=== PATIENT | female | born 1990 | race Caucasian/White ===

== ENCOUNTER → 2019-04-27 09:33 | Outpatient (BNVA) | payer OTHER, SELFPAY | PROVIDERS: Family Provider Nurse Practitioner Family; PCP Nurse Practitioner Family; Visit Provider Nurse Practitioner Family | DX: Z01.419 Encounter for gynecological examination (general) (routine) without abnormal findings (principal); Z68.28 Body mass index [BMI] 28.0-28.9, adult; Z71.3 Dietary counseling and surveillance; Z71.82 Exercise counseling; R51 Headache; R10.9 Unspecified abdominal pain | CPT/HCPCS: 81003 ==

== ENCOUNTER → 2019-05-27 09:26 | Outpatient (BNVA) | payer OTHER, SELFPAY | PROVIDERS: Family Provider Nurse Practitioner Family; PCP Nurse Practitioner Family; Visit Provider Nurse Practitioner Family | DX: R51 Headache (principal) | CPT/HCPCS: 80053; 84443; 85025 ==

== ENCOUNTER 2019-08-30 12:53 | Outpatient (CLI) | payer OTHER, SELFPAY ==
--- NOTE | 2019-08-30 13:00 | US_ITS ---
WS: [id number] RIGHT UPPER QUADRANT ULTRASOUND HISTORY: RUQ pain COMPARISON: None available. Liver: 14.7 cm in length. Normal size and echogenicity with no intrahepatic dilatation. No mass. Gallbladder: Normally distended gallbladder with no stones or wall thickening. CBD: 0.3 cm Pancreas: Normal size and echogenicity. Right kidney: 11.2 cm in length. Normal echogenicity with no mass or hydronephrosis. Aorta and IVC: Unremarkable. No ascites. US/US abdomen limited [id number] IMPRESSION: Normal RIGHT upper quadrant ultrasound.
== END 2019-08-30 12:54 | disposition home or self-care (01) ==
LOC: RAD 12:57
PROVIDERS: PCP Nurse Practitioner Family; Visit Provider Family Medicine
DX: R10.11 Right upper quadrant pain (principal); R10.13 Epigastric pain; Z68.28 Body mass index [BMI] 28.0-28.9, adult; Z71.89 Other specified counseling
CPT/HCPCS: 76705; 81000

== ENCOUNTER → 2019-09-21 10:12 | Outpatient (BNVA) | payer OTHER, SELFPAY | PROVIDERS: Visit Provider Nurse Practitioner Family | DX: R10.9 Unspecified abdominal pain (principal); R10.13 Epigastric pain; K21.9 Gastro-esophageal reflux disease without esophagitis; R10.813 Right lower quadrant abdominal tenderness; R10.811 Right upper quadrant abdominal tenderness; R10.84 Generalized abdominal pain | CPT/HCPCS: 80053; 81003; 81025; 85025 ==

== ENCOUNTER → 2019-09-22 09:41 | Outpatient (BNVA) | payer OTHER, SELFPAY | PROVIDERS: Visit Provider Nurse Practitioner Family | DX: K21.9 Gastro-esophageal reflux disease without esophagitis (principal); R10.9 Unspecified abdominal pain | CPT/HCPCS: 87338 ==

== ENCOUNTER 2019-09-28 08:11 | Outpatient (CLI) | payer OTHER, SELFPAY ==
[2019-09-28] MEDS: iohexol 300 mg/mL 50 mL Btl PO (09:12)
--- NOTE | 2019-09-28 09:30 | CT_ITS ---
WS: [id number] CT ABDOMEN PELVIS TECHNIQUE: Contrast-enhanced CT of the abdomen and pelvis with coronal and sagittal reformatted image s. CLINICAL INFORMATION: epigastric pain, abdominal tenderness COMPARISON: None. DLP: [address] scans at [facility] use at least one of these dose optimization techniques: automat ed exposure control; mA and/or kV adjustment per patient size (includes targeted exams where dose is matched to clinical indication); or iterative reconstruction. FINDINGS: Mild diffuse fatty infiltration of the liver. Normal portal vein and splenic vein. Normal spleen. Nor mal gastroesophageal junction. Lung bases are well aerated. Normal visualized gallbladder. Adrenal gl ands are normal. Normal renal parenchymal enhancement. No hydronephrosis. Normal caliber abdominal ao rta. Normal sigmoid colon. Colon appears decompressed. No evidence of small or large bowel obstruction. No inguinal lymphadenopathy. A few prominent lymph nodes along the mesenteric root and right lower quad rant likely reactive. Mild lumbar curve convex left. Incidental fat-containing umbilical hernia. CT/CT abdomen pelvis w con* [id number] IMPRESSION: 1. Mild diffuse fatty infiltration liver. 2. Normal caliber abdominal aorta. 3. No evidence of small or large bowel obstruction. Normal sigmoid colon. 4. A few prominent lymph nodes along the mesenteric root and right lower quadr ant likely reactive. No abdominal lymphadenopathy. 5. No hydronephrosis in either kidney. 6. Incidental fat-containing umbilical hernia.
[2019-09-28] MEDS: iohexol 300 mg/mL 100 mL Btl IV (09:56)
== END 2019-09-28 08:12 | disposition home or self-care (01) ==
LOC: RADWPI 08:16
PROVIDERS: Family Provider Nurse Practitioner Family; PCP Nurse Practitioner Family; Visit Provider Nurse Practitioner Family
DX: R10.13 Epigastric pain (principal); R10.819 Abdominal tenderness, unspecified site; K76.0 Fatty (change of) liver, not elsewhere classified; K42.9 Umbilical hernia without obstruction or gangrene
CPT/HCPCS: 74177; Q9967

== ENCOUNTER → 2020-11-29 11:44 | Outpatient (BNVA) | payer OTHER, SELFPAY | PROVIDERS: Family Provider Nurse Practitioner Family; PCP Nurse Practitioner Family; Visit Provider Nurse Practitioner Family | DX: Z20.822 Contact with and (suspected) exposure to COVID-19 (principal) | CPT/HCPCS: 87635 ==

== ENCOUNTER → 2021-01-03 11:47 | Outpatient (BNVA) | payer OTHER, SELFPAY | PROVIDERS: Family Provider Nurse Practitioner Family; PCP Nurse Practitioner Family; Visit Provider Nurse Practitioner Family | DX: Z12.4 Encounter for screening for malignant neoplasm of cervix (principal); N92.6 Irregular menstruation, unspecified | CPT/HCPCS: 81000; 81025; 88175 ==

== ENCOUNTER 2021-01-06 07:20 | Outpatient (CLI) | payer OTHER, SELFPAY ==
[2021-01-06 07:34] LABS: Basophils # 0.1 10^3/uL (0.0-0.1); Basophils % 0.9 %; Eosinophils # 0.2 10^3/uL (0.0-0.8); Eosinophils % 1.9 %; Hematocrit 43.4 % (37.0-47.0); Hemoglobin 12.7 g/dL (11.5-15.3); Lymphocytes # 3.4 10^3/uL (0.8-4.8); Lymphocytes % 35.8 %; Mean Corpuscular HGB Conc 29.3 g/dL (30.0-36.0); Mean Corpuscular Hemoglobin 27.3 pg (28.0-34.0); Mean Corpuscular Volume 93.1 fl (81-99); Mean Platelet Volume 10.1 fL (7.4-10.4); Monocytes # 0.7 10^3/uL (0.2-0.9); Monocytes % 7.6 %; Neutrophils # 5.14 10^3/uL (1.8-7.7); Neutrophils % 53.5 %; Nucleated Red Blood Cells % 0 %; Platelet Count 370 10^3/cmm (130-400); Red Blood Count 4.66 10^6/uL (4.1-5.3); Red Cell Distribution Width 15.1 % (12.1-15.1); White Blood Count 9.6 10^3/uL (4.0-10.0)
[2021-01-06 08:31] LABS: Alanine Aminotransferase 17 U/L (0-33); Albumin Level 4.3 g/dL (3.5-5.2); Alkaline Phosphatase 94 IU/L (35-105); Aspartate Amino Transferase 15 U/L (0-32); Blood Urea Nitrogen 13 mg/dL (6-20); Calcium 9.5 mg/dL (8.5-10.5); Carbon Dioxide 21 mmol/L (22-29); Chloride 103 mmol/L (98-107); Globulin 3.4 g/dL (1.3-4.6); Glomerular Filtration Rate 145.9 mL/min (90-130); Glucose 83 mg/dL (65-115); Osmolality Calculated 283 mOsm/kg (285-295); Sodium 137 mmol/L (136-145); Total Bilirubin 0.7 mg/dL (0.15-1.2); Total Protein 7.7 g/dL (6.6-8.7)
--- NOTE | 2021-02-25 14:51 | US_ITS ---
WS: [id number] ULTRASOUND SOFT TISSUES LEFT inguinal region. HISTORY: M79.89 - Other specified soft tissue disorders COMPARISON: None available. TECHNIQUE: 2-D and color Doppler imaging is submitted. Ultrasound is directed over the swollen edematous LEFT thigh. There is no underlying mass identified. No fluid collection. Benign lymph nodes noted at the LEFT inguinal region.
--- NOTE | 2021-02-25 14:51 | USCV_ITS ---
ManuelinesLudwin Age: 30 Gender: F : 1990 Exam Date: 02/25/2021 14:56 Ordering Phys: Louann Huffman-José Luis Technologist: KEVIN Exam Location: [facility] [place] [facility] [place] Indication: OTHER SPECIFIED SOFT TISSUE DISORDERS PROCEDURES: Venous duplex imaging was performed in only the left lower extremity. The following venous structures were evaluated: common femoral vein, profunda vein, proximal portion of the greater saphenous vein, superficial femoral vein, and the popliteal vein. In addition, the posterior tibial and peroneal trunk were evaluated. Serial compression, augmentation maneuvers, and spectral Doppler flow evaluation were performed. FINDINGS: Normal 2-D Doppler and augmentation and compressibility throughout the lower extremity venous structures. Additional imaging through the proximal calf veins also reveals no thrombus. Limited evaluation of the greater saphenous vein is patent with no thrombus. CONCLUSIONS No DVT left lower extremity. Dr. Marlen Sutton DO (Electronically Signed) Final Date: 25 February 2021 15:50 S
== END 2021-01-06 07:21 | disposition home or self-care (01) ==
PROVIDERS: PCP Nurse Practitioner Family; Visit Provider Nurse Practitioner Family
DX: R00.2 Palpitations (principal)
CPT/HCPCS: 36415; 80053; 84443; 85025

== ENCOUNTER → 2021-02-22 09:13 | Outpatient (BNVA) | payer OTHER, SELFPAY | PROVIDERS: PCP Nurse Practitioner Family; Visit Provider Nurse Practitioner Family | DX: M79.89 Other specified soft tissue disorders (principal); M25.552 Pain in left hip; R10.32 Left lower quadrant pain | CPT/HCPCS: 73502 ==

== ENCOUNTER 2021-02-25 13:10 | Outpatient (CLI) | payer OTHER, SELFPAY ==
--- NOTE | 2021-02-25 14:30 | US_ITS ---
WS: [id number] ULTRASOUND SOFT TISSUES LEFT inguinal region. HISTORY: M79.89 - Other specified soft tissue disorders COMPARISON: None available. TECHNIQUE: 2-D and color Doppler imaging is submitted. Ultrasound is directed over the swollen edematous LEFT thigh. There is no underlying mass identified. No fluid collection. Benign lymph nodes noted at the LEFT inguinal region. US/US soft tissue/extremity [id number] IMPRESSION: Benign lymph node at the LEFT inguinal region.
--- NOTE | 2021-02-25 14:30 | USCV_ITS ---
ManuelinesLudwin Age: 30 Gender: F : 1990 Exam Date: 02/25/2021 14:56 Ordering Phys: Louann Huffman-José Luis Technologist: KEVIN Exam Location: [facility] [place] Indication: OTHER SPECIFIED SOFT TISSUE DISORDERS PROCEDURES: Venous duplex imaging was performed in only the left lower extremity. The following venous structures were evaluated: common femoral vein, profunda vein, proximal portion of the greater saphenous vein, superficial femoral vein, and the popliteal vein. In addition, the posterior tibial and peroneal trunk were evaluated. Serial compression, augmentation maneuvers, and spectral Doppler flow evaluation were performed. FINDINGS: Normal 2-D Doppler and augmentation and compressibility throughout the lower extremity venous structures. Additional imaging through the proximal calf veins also reveals no thrombus. Limited evaluation of the greater saphenous vein is patent with no thrombus. CONCLUSIONS No DVT left lower extremity. Dr. Marlen Sutton DO (Electronically Signed) Final Date: 25 February 2021 15:50 S
== END 2021-02-25 13:11 | disposition home or self-care (01) ==
LOC: RAD 02-26 13:15
PROVIDERS: PCP Nurse Practitioner Family; Visit Provider Nurse Practitioner Family
DX: M79.89 Other specified soft tissue disorders (principal)
CPT/HCPCS: 76882; 93971

== ENCOUNTER 2021-04-22 08:26 | Outpatient (CLI) | payer OTHER, SELFPAY ==
--- NOTE | 2021-04-22 10:00 | CT_ITS ---
WS: [id number] CT ABDOMEN PELVIS TECHNIQUE: Contrast-enhanced CT of the abdomen and pelvis with coronal and sagittal reformatted image s. CLINICAL INFORMATION: R10.32 - Left lower quadrant pain COMPARISON: CT September 28, 2019 DLP: 1128.[address] scans at [facility] use at least one of these dose optimization techniques: automated e xposure control; mA and/or kV adjustment per patient size (includes targeted exams where dose is matc hed to clinical indication); or iterative reconstruction. FINDINGS: Mild diffuse fatty infiltration of the liver. Normal GE junction. Normal spleen. Normal portal vein a nd splenic vein. Lung bases are well aerated. Adrenal glands are normal. Normal renal parenchymal enh ancement. No hydronephrosis. Normal caliber abdominal aorta. Normal sigmoid colon. No abdominal or pelvic lymphadenopathy. No inguinal lymphadenopathy. Normal lum bar spine. Visualized inguinal regions are normal in appearance. Peripheral enhancing 17 mm right cor pus luteum cyst. CT/CT abdomen pelvis w con* [id number] IMPRESSION: 1. Mild diffuse fatty infiltration of the liver. 2. No abdominal pelvic or inguinal lymphadenopathy. 3. Stable tiny incidental fat-containing umbilical hernia. 4. Normal caliber abdominal aorta. 5. No free fluid in the abdomen or pelvis. 6. No other significant findings or changes from previous.
[2021-04-22] MEDS: iohexol 300 mg/mL 100 mL Btl IV (10:26)
[2021-04-22] MEDS: iohexol 300 mg/mL 50 mL Btl PO (10:26)
== END 2021-04-22 08:27 | disposition home or self-care (01) ==
PROVIDERS: PCP Nurse Practitioner Family; Visit Provider Nurse Practitioner Family
DX: M79.89 Other specified soft tissue disorders (principal); R59.1 Generalized enlarged lymph nodes; K76.0 Fatty (change of) liver, not elsewhere classified; K42.9 Umbilical hernia without obstruction or gangrene
CPT/HCPCS: 74177; Q9967

== ENCOUNTER 2021-05-08 09:30 | Emergency (ER) | payer OTHER, SELFPAY ==
[2021-05-08 09:41] VITALS: BP 142/85; PULSE 86; RESP 16; TEMP 36.6; O2SAT 100; BMI 26.5
--- NOTE | 2021-05-08 10:15 | ED_ITS ---
Documented by User: LORIE Joyner 05/08/21 10:15 HPI - General: Chief complaint: Vaginal Bleeding Stated complaint: Possible Miscarrige Time Seen by Provider: 05/08/21 11:10 History of Present Illness: HPI Narrative: Patient states that she possibly is currently on her cycle or possibly had a miscarriage last night. Says been 4 weeks since she has had her last cycle. She did test last night and came back positive. Patient denies other symptoms presently. Date of Last Menstrual Period: 08/05/19 [facility] ED PFSH: Medical History Acid reflux Umbilical hernia Social History Alcohol intake: never Marital status: Female Reproductive History: Date of last menstrual period: 08/05/19 Course Vital Signs: Vital signs: Vital Signs Temperature 97.9 F 05/08/21 09:41 Pulse Rate 86 05/08/21 09:41 Respiratory Rate 16 05/08/21 09:41 Blood Pressure 142/85 05/08/21 09:41 Pulse Oximetry 100 05/08/21 09:41 MDM - OB/Uterine Contractions Lab Data: Labs: Lab Results 05/08/21 05/08/21 05/08/21 11:19 11:34 11:34 WBC 5.5 10^3/uL 10^3/ uL (4.0-10.0) RBC 4.43 10^6/uL 10^6 /uL (4.1-5.3) Hgb 12.3 g/dL g/dL (11.5-15.3) Hct 38.4 % % (37.0-47.0) MCV 86.7 fl fl (81-99) MCH 27.8 pg L pg (28.0-34.0) MCHC 32.0 g/dL g/dL (30.0-36.0) RDW 14.2 % % (12.1-15.1) Plt Count 382 10^3/cmm 10^3 /cmm (130-400) MPV 9.5 fL fL (7.4-10.4) Neut % (Auto) 54.4 % % Lymph % (Auto) 36.7 % % Trinity % (Auto) 7.1 % % Eos % (Auto) 0.7 % % Baso % (Auto) 0.9 % % Neut # (Auto) 2.99 10^3/uL 10^3 /uL (1.8-7.7) Lymph # (Auto) 2.0 10^3/uL 10^3/ uL (0.8-4.8) Trinity # (Auto) 0.4 10^3/uL 10^3/ uL (0.2-0.9) Eos # (Auto) 0.0 10^3/uL 10^3/ uL (0.0-0.8) Baso # (Auto) 0.1 10^3/uL 10^3/ uL (0.0-0.1) Nucleated RBC % (a uto) 0 % % Nucleated RBCs # 0.0 /100WBC /100W BC Ser , Nusrat i-Qnt 6.14 mIU/mL mIU/m L Urine Color Yellow (Yellow) Urine Appearance Clear (CLEAR) Urine pH 5 (5-7) Ur Specific Gravit y 1.020 (1.005-1.030) Urine Protein Neg (Negative) Urine Glucose (UA) Norm (Normal) Urine Ketones Negative (Negative) Urine Blood 3+ H (Negative) Urine Nitrate Negative (Negative) Urine Bilirubin Neg (Negative) Urine Urobilinogen Norm mg/dL mg/dL (Negative) Ur Leukocyte Yeny ase Negative (Negative) Urine RBC 25-40 /hpf H /hpf (0-2) Urine WBC None /hpf /hpf (0-5) Ur Squamous Epith Cells 0-4 /hpf H /hpf (0-5) Amorphous Sediment Not Reportable Urine Bacteria Trace /hpf /hpf (NONE) Urine Mucus 1+ /hpf /hpf Blood Type Rho(D) Type 05/08/21 11:34 WBC RBC Hgb Hct MCV MCH MCHC RDW Plt Count MPV Neut % (Auto) Lymph % (Auto) Trinity % (Auto) Eos % (Auto) Baso % (Auto) Neut # (Auto) Lymph # (Auto) Trinity # (Auto) Eos # (Auto) Baso # (Auto) Nucleated RBC % (a uto) Nucleated RBCs # Ser , Nusrat i-Qnt Urine Color Urine Appearance Urine pH Ur Specific Gravit y Urine Protein Urine Glucose (UA) Urine Ketones Urine Blood Urine Nitrate Urine Bilirubin Urine Urobilinogen Ur Leukocyte Yeny ase Urine RBC Urine WBC Ur Squamous Epith Cells Amorphous Sediment Urine Bacteria Urine Mucus Blood Type O Positive Rho(D) Type Positive Discharge Plan Discharge Patient Disposition: Home Clinical Impression: Vaginal bleeding, Positive home test Condition: Stable Prescriptions: No Action metronidazole [Metrogel Vaginal] 0.75 % gel 1 appful vaginal DAILY 5 Days Qty: 70 RF: 0 pantoprazole [Protonix] 40 mg tablet,delayed release (DR/EC) 40 mg PO DAILY Qty: 30 RF: 2 Discharge Orders: Discharge ED (Routine); Ordered 05/08/21 Ordered By: Alexandria Soares Referrals: Louann Huffman FNP-C [Primary Care Provider] - Discharge Diet: Advance as tolerated Discharge Activity: Resume usual activity Activity Restrictions/Additional Instructions: Make sure to call your primary care doctor today or tomorrow to set up a follow- up appointment. Your hCG level will need to be redrawn in the next 24 to 48 hours. Return immediately to the ER if you develop abdominal pain, fever, sudden heavy bleeding, or any other concerning symptoms. Coding Level of Care Code ED Clerical Warehouseman for Chg Fwd Exam Comprehensive Documented by User: Alexandria Soares MD 05/08/21 12:54 HPI - General: Chief complaint: Vaginal Bleeding Stated complaint: Possible Miscarrige Time Seen by Provider: 05/08/21 11:10 Source: patient Mode of arrival: ambulatory History of Present Illness: Complaint: vaginal bleeding Onset (ago): day(s) Location: pelvis Severity: mild Quality: Cramping Vaginal bleeding: light Hx Last Menstrual Period: 4 wks ago Patient : Yes Associated symptoms: Reports vaginal bleeding; Deny dysuria, headache(s), nausea or vomiting Related Data: : 1 Para: 0 Total number of abortions (spontaneous and elective): 0 Review of Systems General: Reports: 10 or more systems reviewed and unremarkable except in HPI and below Const: Denies: fever(s), chills or body aches Card: Denies: chest pain, palpitations or irregular heart rhythm Resp: Denies: dyspnea, productive cough, non-productive cough or wheezing GI: Reports: GI cramping; Denies: nausea or vomiting : Reports: vaginal bleeding; Denies: difficulty voiding or dysuria Skin/Breast: Denies: rash Neuro: Denies: headache(s) PFSH ED PFSH: Medical History Acid reflux Umbilical hernia Social History Alcohol intake: never Marital status: Female Reproductive History: : 1 Physical Exam Const: COMMON NORMALS: no acute distress, average body habitus and patient oriented x3 GENERAL APPEARANCE: cooperative and comfortable; not ill appearing HENMT: COMMON NORMALS: normocephalic HEAD & SCALP: normal to inspection and normocephalic FACE & SINUS: normal facial exam Eye: COMMON NORMALS: Equal, round and reactive pupils present, EOMs intact bilaterally, conjunctivae normal and no scleral icterus CONJUNCTIVA: Yes conjunctivae normal PUPIL: Yes Equal, round and reactive pupils present Resp: COMMON NORMALS: normal respiratory effort EFFORT & INSPECTION: Yes able to speak in complete sentences Cardio: COMMON NORMALS: regular rate and regular rhythm RATE: regular rate RHYTHM: regular rhythm GI: COMMON NORMALS: Normal to inspection, nondistended, normoactive bowel sounds present, Soft to palpation and non-tender PALPATION: Yes Soft to palpation : COMMON NORMALS: Yes no CVA tenderness, Yes normal external appearance, Yes normal appearance of the vagina and Yes normal appearance of the cervix BLADDER/KIDNEY EXAM: Yes no CVA tenderness SPECULUM EXAM - VAGINA: No foreign body, No laceration and Yes vaginal bleeding Amount: small/minimal SPECULUM EXAM - CERVIX: No Cervical mass present BIMANUAL EXAM - VAGINA & UTERUS: No cervical motion tenderness BIMANUAL EXAM - ADNEXA, OTHER: No tender OB/EXTERNAL & SPECULUM: external exam normal and vaginal bleeding; no foreign bodies Back/Pelvis: COMMON NORMALS: no CVA tenderness Extremity: GENERAL: Yes normal exam except as noted Neuro: COMMON NORMALS: patient oriented x3 Skin: COMMON NORMALS: no rashes or lesions noted and turgor normal GENERAL SKIN EXAM: no rashes or lesions noted and turgor normal Course Vital Signs: Vital signs: Vital Signs Temperature 97.9 F 05/08/21 09:41 Pulse Rate 86 05/08/21 09:41 Respiratory Rate 16 05/08/21 09:41 Blood Pressure 142/85 05/08/21 09:41 Pulse Oximetry 100 05/08/21 09:41 MDM - OB/Uterine Contractions MDM Narrative: Medical decision making narrative: 30 year old female , LMP 4wks ago, Light vaginal bleeding and mild cramping for 2 days Positive home test Differential diagnosis; first trimester bleeding, threatened miscarriage, ectopic , Rh+ Hemoglobin stable hCG level 6; consistent with a early first trimester miscarriage or chemical . Discussed results with the patient. She needs to follow-up with her PCP in the next 24 to 48 hours to have hCG redrawn. Return for heavy bleeding, abdominal pain, fever or any other worsening symptoms. Medical Records: Attestation: I reviewed the patient's medical records. Lab Data: Attestation: I reviewed the patient's lab results. Labs: Lab Results 05/08/21 05/08/21 05/08/21 11:19 11:34 11:34 WBC 5.5 10^3/uL 10^3/ uL (4.0-10.0) RBC 4.43 10^6/uL 10^6 /uL (4.1-5.3) Hgb 12.3 g/dL g/dL (11.5-15.3) Hct 38.4 % % (37.0-47.0) MCV 86.7 fl fl (81-99) MCH 27.8 pg L pg (28.0-34.0) MCHC 32.0 g/dL g/dL (30.0-36.0) RDW 14.2 % % (12.1-15.1) Plt Count 382 10^3/cmm 10^3 /cmm (130-400) MPV 9.5 fL fL (7.4-10.4) Neut % (Auto) 54.4 % % Lymph % (Auto) 36.7 % % Trinity % (Auto) 7.1 % % Eos % (Auto) 0.7 % % Baso % (Auto) 0.9 % % Neut # (Auto) 2.99 10^3/uL 10^3 /uL (1.8-7.7) Lymph # (Auto) 2.0 10^3/uL 10^3/ uL (0.8-4.8) Trinity # (Auto) 0.4 10^3/uL 10^3/ uL (0.2-0.9) Eos # (Auto) 0.0 10^3/uL 10^3/ uL (0.0-0.8) Baso # (Auto) 0.1 10^3/uL 10^3/ uL (0.0-0.1) Nucleated RBC % (a uto) 0 % % Nucleated RBCs # 0.0 /100WBC /100W BC Ser , Nusrat i-Qnt 6.14 mIU/mL mIU/m L Urine Color Yellow (Yellow) Urine Appearance Clear (CLEAR) Urine pH 5 (5-7) Ur Specific Gravit y 1.020 (1.005-1.030) Urine Protein Neg (Negative) Urine Glucose (UA) Norm (Normal) Urine Ketones Negative (Negative) Urine Blood 3+ H (Negative) Urine Nitrate Negative (Negative) Urine Bilirubin Neg (Negative) Urine Urobilinogen Norm mg/dL mg/dL (Negative) Ur Leukocyte Yeny ase Negative (Negative) Urine RBC 25-40 /hpf H /hpf (0-2) Urine WBC None /hpf /hpf (0-5) Ur Squamous Epith Cells 0-4 /hpf H /hpf (0-5) Amorphous Sediment Not Reportable Urine Bacteria Trace /hpf /hpf (NONE) Urine Mucus 1+ /hpf /hpf Blood Type Rho(D) Type 05/08/21 11:34 WBC RBC Hgb Hct MCV MCH MCHC RDW Plt Count MPV Neut % (Auto) Lymph % (Auto) Trinity % (Auto) Eos % (Auto) Baso % (Auto) Neut # (Auto) Lymph # (Auto) Trinity # (Auto) Eos # (Auto) Baso # (Auto) Nucleated RBC % (a uto) Nucleated RBCs # Ser , Nusrat i-Qnt Urine Color Urine Appearance Urine pH Ur Specific Gravit y Urine Protein Urine Glucose (UA) Urine Ketones Urine Blood Urine Nitrate Urine Bilirubin Urine Urobilinogen Ur Leukocyte Yeny ase Urine RBC Urine WBC Ur Squamous Epith Cells Amorphous Sediment Urine Bacteria Urine Mucus Blood Type O Positive Rho(D) Type Positive Discharge Plan Discharge Patient Disposition: Home Clinical Impression: Vaginal bleeding, Positive home test Condition: Stable Prescriptions: No Action metronidazole [Metrogel Vaginal] 0.75 % gel 1 appful vaginal DAILY 5 Days Qty: 70 RF: 0 pantoprazole [Protonix] 40 mg tablet,delayed release (DR/EC) 40 mg PO DAILY Qty: 30 RF: 2 Discharge Orders: Discharge ED (Routine); Ordered 05/08/21 Ordered By: Alexandria Soares Referrals: Louann Huffman FNP-C [Primary Care Provider] - Discharge Diet: Advance as tolerated Discharge Activity: Resume usual activity Activity Restrictions/Additional Instructions: Make sure to call your primary care doctor today or tomorrow to set up a follow- up appointment. Your hCG level will need to be redrawn in the next 24 to 48 hours. Return immediately to the ER if you develop abdominal pain, fever, sudden heavy bleeding, or any other concerning symptoms. Coding Level of Care Code ED Clerical Warehouseman for Chg Fwd Exam Comprehensive
[2021-05-08 11:48] LABS: Basophils # 0.1 10^3/uL (0.0-0.1); Basophils % 0.9 %; Eosinophils % 0.7 %; Hematocrit 38.4 % (37.0-47.0); Hemoglobin 12.3 g/dL (11.5-15.3); Lymphocytes % 36.7 %; Mean Corpuscular Hemoglobin 27.8 pg (28.0-34.0); Mean Corpuscular Volume 86.7 fl (81-99); Mean Platelet Volume 9.5 fL (7.4-10.4); Monocytes # 0.4 10^3/uL (0.2-0.9); Monocytes % 7.1 %; Neutrophils # 2.99 10^3/uL (1.8-7.7); Neutrophils % 54.4 %; Nucleated Red Blood Cells % 0 %; Platelet Count 382 10^3/cmm (130-400); Red Blood Count 4.43 10^6/uL (4.1-5.3); Red Cell Distribution Width 14.2 % (12.1-15.1); White Blood Count 5.5 10^3/uL (4.0-10.0)
[2021-05-08 12:20] LABS: HCG Quantitative 6.14 mIU/mL
[2021-05-08 12:41] LABS: Glucose Urine UA Norm (Normal); Ketones Urine Negative (Negative); Protein Urine Neg (Negative); Urine Appearance Clear (CLEAR); Urine Color Yellow (Yellow); pH Urine 5 (5-7)
[2021-05-08 12:42] LABS: Add Urine Culture? Yes; Add Urine Microscopic? YES; Bacteria Urine TRACE /hpf; Bilirubin Urine Neg (Negative); Blood Urine 3+ (Negative); Leukocyte Esterase Urine Negative (Negative); Mucus Urine 1+ /hpf; Nitrate Urine Negative (Negative); RBC Urine 25-40 /hpf (0-2); Squamous Epithelial Cell Urine 0-4 /hpf (0-5); Urobilinogen Urine Norm (Negative)
[2021-05-08 13:04] VITALS: BP 132/61; TEMP 36.9
--- NOTE | 2021-05-08 13:14 | PC.NURSE ---
patient discharged to home, verbalized understanding of all instructions and follow up lab, patient ambulated from ED without issue
== END 2021-05-08 13:16 | disposition home or self-care (01) ==
PROVIDERS: Nurse Practitioner Family; Emergency Provider Family Medicine; PCP Nurse Practitioner Family
DX: Z32.01 Encounter for pregnancy test, result positive (principal); N93.9 Abnormal uterine and vaginal bleeding, unspecified; K21.9 Gastro-esophageal reflux disease without esophagitis
CPT/HCPCS: 81001; 84702; 85025; 86900; 87086; 99282

== ENCOUNTER → 2021-05-09 14:16 | Outpatient (BNVA) | payer OTHER, SELFPAY | PROVIDERS: PCP Nurse Practitioner Family; Visit Provider Nurse Practitioner Family | DX: N93.9 Abnormal uterine and vaginal bleeding, unspecified (principal) | CPT/HCPCS: 84702 ==

== ENCOUNTER 2021-10-31 13:18 | Outpatient (CLI) | payer OTHER, SELFPAY ==
[2021-10-31 14:03] LABS: Basophils # 0.1 10^3/uL (0.0-0.1); Basophils % 0.5 %; Eosinophils # 0.1 10^3/uL (0.0-0.8); Eosinophils % 0.8 %; Hematocrit 39.8 % (37.0-47.0); Hemoglobin 12.6 g/dL (11.5-15.3); Lymphocytes # 2.9 10^3/uL (0.8-4.8); Lymphocytes % 31.8 %; Mean Corpuscular HGB Conc 31.7 g/dL (30.0-36.0); Mean Corpuscular Hemoglobin 27.9 pg (28.0-34.0); Mean Corpuscular Volume 88.2 fl (81-99); Mean Platelet Volume 9.5 fL (7.4-10.4); Monocytes # 0.5 10^3/uL (0.2-0.9); Monocytes % 5.9 %; Neutrophils # 5.55 10^3/uL (1.8-7.7); Neutrophils % 60.8 %; Nucleated Red Blood Cells % 0 %; Platelet Count 404 10^3/cmm (130-400); Red Blood Count 4.51 10^6/uL (4.1-5.3); Red Cell Distribution Width 13.4 % (12.1-15.1); White Blood Count 9.1 10^3/uL (4.0-10.0)
[2021-10-31 14:37] LABS: Free T4 Free Thyroxine 1.13 ng/dL (0.82-1.77); Thyroid Stimulating Hormone 2.54 uIU/mL (0.27-4.20)
== END 2021-10-31 13:19 | disposition home or self-care (01) ==
PROVIDERS: PCP Nurse Practitioner Family; Visit Provider Nurse Practitioner Women's Health
DX: N92.3 Ovulation bleeding (principal)
CPT/HCPCS: 84439; 84443; 85025

== ENCOUNTER 2021-11-14 12:09 | Outpatient (CLI) | payer OTHER, SELFPAY ==
--- NOTE | 2021-11-14 12:30 | US_ITS ---
WS: [id number] Exam: US transvaginal [id number] Date/Time of Exam: 11/14/2021 12:20 PM Reason For Exam: N92.3 - Ovulation bleeding The uterus is unremarkable and measures 7.7 x 3.44 x 4.84 cm. Endometrial thickness is 8.7 mm. The le ft ovary is not identified with a degree of certainty. The right ovary measures 3.8 x 2.85 x 3.18 cm. The right ovary contains a complex density that is partially solid and partially cystic. This may re present a complex hemorrhagic cyst. The right ovary shows normal perfusion. No abnormal free fluid co llection in the pelvis. No adnexal mass. US/US transvaginal [id number] IMPRESSION: 1. The right ovary is complex in appearance being partially solid and partially cystic. This may represent a hemorrhagic cyst or involuting corpus luteum cyst . Follow-up ultrasound after 1-2 menstrual cycles would be suggested for survei llance. 2. Nonvisualization of the left ovary. 3. Unremarkable uterus. No adnexal mass or abnormal free fluid collection in th e pelvis.
== END 2021-11-14 12:10 | disposition home or self-care (01) ==
PROVIDERS: PCP Nurse Practitioner Family; Visit Provider Nurse Practitioner Women's Health
DX: N92.3 Ovulation bleeding (principal)
CPT/HCPCS: 76830

== ENCOUNTER → 2022-01-06 07:57 | Outpatient (BNVA) | payer OTHER, SELFPAY | PROVIDERS: PCP Nurse Practitioner Family; Visit Provider Nurse Practitioner Women's Health | DX: N83.201 Unspecified ovarian cyst, right side (principal) | CPT/HCPCS: 76830 ==

== ENCOUNTER 2022-03-03 07:46 | Outpatient (CLI) | payer OTHER, SELFPAY ==
[2022-03-03 08:20] LABS: Basophils % 0.5 %; Eosinophils # 0.2 10^3/uL (0.0-0.8); Eosinophils % 2.2 %; Hematocrit 41.1 % (37.0-47.0); Hemoglobin 13.2 g/dL (11.5-15.3); Lymphocytes # 2.6 10^3/uL (0.8-4.8); Lymphocytes % 32.1 %; Mean Corpuscular HGB Conc 32.1 g/dL (30.0-36.0); Mean Corpuscular Hemoglobin 28.3 pg (28.0-34.0); Mean Corpuscular Volume 88.2 fl (81-99); Mean Platelet Volume 9.4 fL (7.4-10.4); Monocytes # 0.7 10^3/uL (0.2-0.9); Nucleated Red Blood Cells % 0 %; Platelet Count 348 10^3/cmm (130-400); Red Blood Count 4.66 10^6/uL (4.1-5.3); Red Cell Distribution Width 13.2 % (12.1-15.1); White Blood Count 8.1 10^3/uL (4.0-10.0)
[2022-03-03 08:43] LABS: Alanine Aminotransferase 11 U/L (0-33); Albumin Level 4.4 g/dL (3.5-5.2); Alkaline Phosphatase 83 U/L (35-105); Aspartate Amino Transferase 18 U/L (0-32); Blood Urea Nitrogen 12 mg/dL (6-20); Calcium 9.7 mg/dL (8.5-10.5); Carbon Dioxide 23 mmol/L (22-29); Chloride 98 mmol/L (98-107); Chol HDL Ratio 3.05 mg/dL (0.0-4.40); Cholesterol 168 mg/dL (0-200); Globulin 3.9 g/dL (1.3-4.6); Glomerular Filtration Rate 117.4 mL/min (90-130); Glucose 86 mg/dL (65-115); HDL Cholesterol 55 mg/dL (60-100); LDL Cholesterol Calculated 98 mg/dL (50-129); LDL HDL Ratio 1.78 RATIO (0.00-3.22); Osmolality Calculated 277 mOsm/kg (285-295); Sodium 134 mmol/L (136-145); Total Bilirubin 0.5 mg/dL (0.15-1.2); Total Protein 8.3 g/dL (6.6-8.7); Triglycerides 75 mg/dL (0-150)
[2022-03-03 08:46] LABS: Testosterone Total 13.5 ng/dL (8.4-48.1)
[2022-03-03 11:31] LABS: Luteinizing Hormone 3.3 mIU/mL (0.5-41.7); Progesterone 12.56 ng/mL
[2022-03-03 12:03] LABS: Follicle Stimulating Hormone 2.2 mIU/mL
[2022-03-08 17:12] LABS: Estrogens Total 354.7 pg/mL
== END 2022-03-03 07:47 | disposition home or self-care (01) ==
PROVIDERS: PCP Nurse Practitioner Family; Visit Provider Nurse Practitioner Family
DX: E88.81 Metabolic syndrome and other insulin resistance (principal); N83.201 Unspecified ovarian cyst, right side
CPT/HCPCS: 36415; 80053; 80061; 82672; 83001; 83002; 84144; 84403; 85025

== ENCOUNTER → 2022-10-02 14:05 | Outpatient (BNVA) | payer OTHER, SELFPAY | PROVIDERS: PCP Nurse Practitioner Family; Visit Provider Nurse Practitioner Family | DX: R06.02 Shortness of breath (principal); R00.2 Palpitations; K21.9 Gastro-esophageal reflux disease without esophagitis | CPT/HCPCS: 71046 ==

== ENCOUNTER 2023-04-28 10:36 | Outpatient (CLI) | payer OTHER, SELFPAY ==
[2023-04-28 10:57] LABS: Basophils % 0.5 %; Eosinophils # 0.1 10^3/uL (0.0-0.8); Eosinophils % 1.8 %; Hematocrit 40.3 % (36-47); Lymphocytes # 2.6 10^3/uL (0.8-4.8); Lymphocytes % 35.2 %; Mean Corpuscular HGB Conc 33.3 g/dL (30-55); Mean Corpuscular Hemoglobin 29.5 pg (27-33); Mean Corpuscular Volume 88.8 fl (85-98); Mean Platelet Volume 9.2 fL (7.4-10.4); Monocytes # 0.5 10^3/uL (0.2-0.9); Neutrophils % 55.2 %; Nucleated Red Blood Cells % 0 %; Platelet Count 387 10^3/cmm (157-399); Red Blood Count 4.54 10^6/uL (3.85-5.65); Red Cell Distribution Width 12.7 % (12.1-15.1); White Blood Count 7.42 10^3/uL (3.29-11.43)
[2023-04-28 11:24] LABS: Alanine Aminotransferase 15 U/L (0-33); Albumin Level 4.7 g/dL (3.5-5.2); Alkaline Phosphatase 78 U/L (35-105); Aspartate Amino Transferase 21 U/L (0-32); Blood Urea Nitrogen 10 mg/dL (6-20); Calcium 10.2 mg/dL (8.5-10.5); Carbon Dioxide 27 mmol/L (22-29); Chloride 102 mmol/L (98-107); Globulin 3.9 g/dL (1.3-4.6); Glomerular Filtration Rate 116.6 mL/min (90-130); Glucose 108 mg/dL (65-115); Osmolality Calculated 290 mOsm/kg (285-295); Sodium 140 mmol/L (136-145); Thyroid Stimulating Hormone 2.36 uIU/mL (0.27-4.20); Total Bilirubin 0.5 mg/dL (0.15-1.2); Total Protein 8.6 g/dL (6.6-8.7)
== END 2023-04-28 10:37 | disposition home or self-care (01) ==
LOC: LAB 10:38
PROVIDERS: PCP Nurse Practitioner Family; Visit Provider Nurse Practitioner Family
DX: R09.A2 Foreign body sensation, throat (principal)
CPT/HCPCS: 36415; 80053; 84443; 85025

== ENCOUNTER 2023-05-08 09:30 | Outpatient (CLI) | payer OTHER, SELFPAY ==
--- NOTE | 2023-05-08 09:45 | US_ITS ---
WS: [id number] THYROID ULTRASOUND HISTORY: R09.A2 - Foreign body sensation, throat COMPARISON: None available. Right lobe: 1.2 cm x 1.2 cm x 5.0 cm (w x ap x l). Volume: 4.0 cm3. Normal size and echotexture. No significant are dominant nodules are present. Left lobe: 1.4 cm x 1.0 cm x 4.5 cm (w x ap x l). Volume: 3.4 cm3. Normal size and echotexture. No significant or dominant nodules are present. Isthmus: 0.3 cm. Normal bilateral cervical chain lymph nodes. IMPRESSION: Normal thyroid ultrasound.
== END 2023-05-08 09:31 | disposition home or self-care (01) ==
LOC: RAD 09:30
PROVIDERS: PCP Nurse Practitioner Family; Visit Provider Nurse Practitioner Family
DX: R09.A2 Foreign body sensation, throat (principal); Z01.419 Encounter for gynecological examination (general) (routine) without abnormal findings
CPT/HCPCS: 76536; 87624

== ENCOUNTER → 2023-06-03 13:58 | Outpatient (BNVA) | payer OTHER, SELFPAY | PROVIDERS: PCP Nurse Practitioner Family; Visit Provider Nurse Practitioner Women's Health | DX: E28.2 Polycystic ovarian syndrome (principal) | CPT/HCPCS: 76830 ==

== ENCOUNTER → 2024-02-11 13:52 | Outpatient (BNVA) | payer OTHER, SELFPAY | PROVIDERS: PCP Nurse Practitioner Family; Visit Provider Nurse Practitioner Family | DX: H54.7 Unspecified visual loss (principal); R51.9 Headache, unspecified | CPT/HCPCS: 80053; 84443; 85025 ==

== ENCOUNTER 2024-06-20 12:19 | Outpatient (CLI) | payer OTHER, SELFPAY ==
--- NOTE | 2024-06-20 12:29 | XR_ITS ---
WS: [id number] XR sacrum coccyx min 2V [id number] REASON FOR EXAM: M54.50 - Low back pain, unspecified FINDINGS: The sacroiliac joints are normal. No fracture or focal bone lesion of the sacrum. The coccyx appears normal. XR/XR sacrum coccyx min 2V [id number] IMPRESSION: No significant abnormality.
--- NOTE | 2024-06-20 12:29 | XR_ITS ---
WS: [id number] XR lumbar spine 2-3V* [id number] REASON FOR EXAM: M54.50 - Low back pain, unspecified FINDINGS: Mild rotatory levoscoliosis. Normal lumbar lordosis. No vertebral body compression deformity or focal vertebral body lesion. Intervertebral disc spaces are intact and relatively well preserved. No spondylolysis. No significant spondylolisthesis. XR/XR lumbar spine 2-3V* [id number] IMPRESSION: Minimal lumbar spine abnormality as above.
== END 2024-06-20 12:20 | disposition home or self-care (01) ==
PROVIDERS: PCP Nurse Practitioner Family; Visit Provider Nurse Practitioner Family
DX: M41.86 Other forms of scoliosis, lumbar region (principal)
CPT/HCPCS: 72100; 72220